=== PATIENT | female | born 1975 | race Hispanic/Latino ===

== ENCOUNTER 2017-08-03 09:16 | Emergency (ER) | payer OTHER ==
[~2017-08-03] VITALS: Ht 162.6 cm; Wt 106.6 kg
[2017-08-03 09:43] VITALS: BP 125/81
== END 2017-08-03 09:55 | disposition home or self-care (01) ==
LOC: FSED 09:16
DX: R50.9 Fever, unspecified (principal); R05 Cough; B34.9 Viral infection, unspecified; J00 Acute nasopharyngitis [common cold]
CPT/HCPCS: 99282

== ENCOUNTER 2022-06-16 13:24 | Emergency (ER) | payer SELFPAY ==
[~2022-06-16] VITALS: Ht 162.6 cm; Wt 106.6 kg
[2022-06-16] MEDS ORDERED: DICYCLOMINE HCL20 MG PO (14:16)
[2022-06-16] MEDS ORDERED: ONDANSETRON ODT4 MG PO (14:16)
== END 2022-06-16 14:42 | disposition home or self-care (01) ==
LOC: ER 13:34
DX: R50.9 Fever, unspecified (principal); B34.9 Viral infection, unspecified; R19.7 Diarrhea, unspecified; E11.9 Type 2 diabetes mellitus without complications
CPT/HCPCS: 99282